=== PATIENT | female | born 1970 | race Two or more races ===

== ENCOUNTER 2020-08-22 10:53 | Outpatient (CLI) | payer OTHER | END 2020-08-22 10:54 | disposition home or self-care (01) | LOC: PPH VACUNA 10:53 | DX: Z23 Encounter for immunization (principal) ==

== ENCOUNTER → 2020-09-12 14:36 | Outpatient (CLI) | payer OTHER | END | disposition home or self-care (01) | LOC: PPH VACUNA 14:36 | DX: Z23 Encounter for immunization (principal) ==